=== PATIENT | female | born 1970 | race Caucasian/White ===

== ENCOUNTER 2016-10-31 18:10 | Emergency (ER) | payer MEDICAID ==
[2016-10-31 18:52] VITALS: BP 112/70
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
[2016-10-31 19:47] LABS: CHLORIDE,CL 108 mmol/L (98-110); SODIUM,NA 140 mmol/L (136-146)
== END 2016-10-31 20:18 | disposition home or self-care (01) ==
LOC: MW.ED 18:10
DX: R53.83 Other fatigue (principal); J45.909 Unspecified asthma, uncomplicated; F17.210 Nicotine dependence, cigarettes, uncomplicated; Z86.73 Personal history of transient ischemic attack (TIA), and cerebral infarction without residual deficits; Z98.890 Other specified postprocedural states; Z79.899 Other long term (current) drug therapy
CPT/HCPCS: 36415; 80053; 85025; 99282; 99283

== ENCOUNTER 2017-01-26 19:28 | Emergency (ER) | payer MEDICAID ==
[2017-01-26] MEDS ORDERED: Albuterol/Ipratropium 3.0-0.5 MG/3 ML Neb Soln NEB ONE (19:31)
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
[2017-01-26 20:01] LABS: CHLORIDE,CL 109 mmol/L (98-110); SODIUM,NA 141 mmol/L (136-146)
[2017-01-26 21:11] VITALS: BP 98/62
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
== END 2017-01-26 21:06 | disposition home or self-care (01) ==
LOC: MW.ED 19:28
DX: J45.21 Mild intermittent asthma with (acute) exacerbation (principal); F32.9 Major depressive disorder, single episode, unspecified; F17.210 Nicotine dependence, cigarettes, uncomplicated; Z86.73 Personal history of transient ischemic attack (TIA), and cerebral infarction without residual deficits; Z98.890 Other specified postprocedural states
CPT/HCPCS: 71020; 71020-26; 80053; 85025; 99284; 99285-25

== ENCOUNTER 2017-04-12 11:00 | Emergency (ER) | payer MEDICAID ==
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
[2017-04-12 12:29] VITALS: BP 99/63
== END 2017-04-12 12:24 | disposition home or self-care (01) ==
LOC: MW.ED 11:00
DX: B34.9 Viral infection, unspecified (principal); F17.210 Nicotine dependence, cigarettes, uncomplicated; Z79.899 Other long term (current) drug therapy
CPT/HCPCS: 87081; 87804; 87880; 99282; 99283

== ENCOUNTER 2017-07-16 19:17 | Observation (INO) | payer MEDICAID ==
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
[2017-07-16] MEDS ORDERED: methylPREDNISolone Sodium Succinate 125 MG/2 ML SDV IVPUSH ONE (19:46)
[2017-07-16 19:54] LABS: CHLORIDE,CL 108 mmol/L (98-110); SODIUM,NA 141 mmol/L (136-146)
[2017-07-16] MEDS ORDERED: Nitroglycerin 0.4 MG Tab.SL SL PRN (19:57)
[2017-07-16] MEDS ORDERED: Ketorolac 30 MG/ML SDV IVPUSH ONE (19:58)
[2017-07-16] MEDS ORDERED: Sodium Chloride 0.9% 500 ML IV SCH (20:15)
[2017-07-16] MEDS ORDERED: Albuterol/Ipratropium 3.0-0.5 MG/3 ML Neb Soln NEB PRN (21:11)
[2017-07-16] MEDS ORDERED: Acetaminophen 325 MG Tab PO PRN (21:13)
[2017-07-16] MEDS ORDERED: Morphine 2 MG/ML Syringe IVPUSH PRN (21:14)
[2017-07-16] MEDS ORDERED: Ondansetron 4 MG/2 ML SDV IVPUSH PRN (22:13)
[2017-07-16] MEDS: Benzonatate 100 MG Cap PO PRN (22:46)
[2017-07-17 07:19] VITALS: BP 98/59
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
[2017-07-17] MEDS: Benzonatate 100 MG Cap PO PRN (09:55)
--- NOTE | 2017-07-19 16:39 | CR ---
EXAM DATE: 07/16/17 PATIENT'S AGE: 46 Patient: ANNIE SHAH Facility: [place], [place] Site . Site : [id number] Study: XRay Chest [id number]/[id number] 7:43:06 PM Ordering Physician: Doctor Quevedo Final Report: INDICATION: Chest pain, shortness of breath. Cough for 4 days. TECHNIQUE: Chest radiograph 1 view COMPARISON: 01/26/2017. FINDINGS: Cardiovascular and mediastinum: The heart silhouette is normal in size and morphology. The mediastinum is normal in appearance. Lungs and pleural spaces: Both lungs are unremarkable in appearance. No sign of pleural effusion seen. No pneumothorax is identified. Bones and soft tissues: Lower cervical spine fusion hardware. IMPRESSION: 1. No acute cardiopulmonary disease is seen. No acute interval changes from . Dictated by Ezequiel Hall MD @ 07/16/2017 8:10:24 PM Dictated by: Ezequiel Hall MD @ 07/16/2017 20:10:29 (Electronic Signature) Report Signed by Proxy. [facility]ENTER[facility]ida
== END 2017-07-17 13:01 | disposition home or self-care (01) ==
LOC: MW.ED 19:17 → MW.ICU 20:19
PROVIDERS: ADMIT Internal Medicine; ATTEND Internal Medicine
DX: R07.9 Chest pain, unspecified (principal); R05 Cough; R06.02 Shortness of breath; J45.909 Unspecified asthma, uncomplicated; F32.9 Major depressive disorder, single episode, unspecified; Z79.899 Other long term (current) drug therapy; Z87.891 Personal history of nicotine dependence
CPT/HCPCS: 36415; 71045; 80053; 84484; 85025; 93005; 96374; 96375; 99285; A9270; G0378; J1885; J2930; J7040; 99284

== ENCOUNTER 2017-10-22 09:27 | Emergency (ER) | payer MEDICAID ==
[2017-10-22] MEDS ORDERED: Albuterol/Ipratropium 3.0-0.5 MG/3 ML Neb Soln NEB ONE ×2 (09:31→10:51)
[2017-10-22] MEDS ORDERED: Sodium Chloride 0.9% 2.5 ML Syringe FLUSH PRN (09:37)
[2017-10-22] MEDS ORDERED: methylPREDNISolone Sodium Succinate 125 MG/2 ML SDV IVPUSH ONE (09:37)
[2017-10-22] MEDS ORDERED: Sodium Chloride 0.9% 1,000 ML IV ONE (09:37)
[2017-10-22] MEDS ORDERED: Sodium Chloride 0.9% 10 ML Syringe FLUSH PRN (09:37)
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
--- NOTE | 2017-10-22 10:59 | CR ---
EXAMINATION: Soft tissue neck HISTORY: Pain COMPARISON: CT dated 07/18/2011 TECHNIQUE: AP and lateral views FINDINGS: Posterior fusion hardware is noted within the lower cervical spine. Prevertebral soft tissu es appear normal. Epiglottis is unremarkable. The subglottic trachea appears normal. The remaining os seous structures are otherwise normal. IMPRESSION: Grossly unremarkable soft tissue neck.
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
[2017-10-22 11:44] VITALS: BP 114/72
== END 2017-10-22 12:05 | disposition home or self-care (01) ==
LOC: MW.ED 09:27
DX: J45.901 Unspecified asthma with (acute) exacerbation (principal); Z79.899 Other long term (current) drug therapy; Z87.891 Personal history of nicotine dependence
CPT/HCPCS: 36415; 70360; 71101; 80053; 85025; 85610; 94640; 96361; 96374; 99285; J2930; J7040

== ENCOUNTER 2018-08-19 17:01 | Emergency (ER) | payer MEDICAID ==
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
[2018-08-19] MEDS ORDERED: Ketorolac 30 MG/ML SDV IVPUSH ONE (17:14)
[2018-08-19 19:02] VITALS: BP 113/70
--- NOTE | 2018-08-22 11:38 | CR ---
EXAM DATE: 08/19/18 PATIENT'S AGE: 48 Patient: ANNIE SHAH Facility: [facility] Site . Site : 1970 Study: XRay-Chest w/ ribs [id number]/22/2019 5:40:07 PM Ordering Physician: Junior Atkinson Final Report: INDICATION: Fall TECHNIQUE: Chest and left ribs 3 views. COMPARISON: 10/22/17 FINDINGS: Cardiovascular and mediastinum: Heart size and vasculature are normal in caliber and appearance. Mediastinum is within normal limits. Lungs and pleural spaces: Lungs are clear. No sign of infiltrate or mass. No sign of pleural effusion. No pneumothorax. Bones and soft tissues: Detailed oblique images of the left ribs demonstrate no fractures or bone lesions. IMPRESSION: Unremarkable chest and left ribs. Dictated by Ghanshyam Bailey MD @ 08/19/2018 6:27:43 PM Dictated by: Ghanshyam Bailey MD @ 08/19/2018 18:28:09 Signed by: Ghanshyam Bailey MD @08/19/2018 6:28:09 PM (Electronic Signature) Report Signed by Proxy. [facility]
== END 2018-08-19 19:00 | disposition home or self-care (01) ==
LOC: MW.ED 17:01
DX: S29.9XXA Unspecified injury of thorax, initial encounter (principal); J45.909 Unspecified asthma, uncomplicated; Z79.899 Other long term (current) drug therapy; Z86.73 Personal history of transient ischemic attack (TIA), and cerebral infarction without residual deficits; W01.198A Fall on same level from slipping, tripping and stumbling with subsequent striking against other object, initial encounter
CPT/HCPCS: 71101; 96374; 99284; J1885; 99282

== ENCOUNTER 2019-12-22 15:47 | Emergency (ER) | payer MEDICAID, OTHER ==
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
[2019-12-22] MEDS ORDERED: Dexamethasone 4 MG Tab PO ONE (15:56)
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
[2019-12-22 16:34] VITALS: BP 94/64; PULSE 93
[2019-12-22 16:42] LABS: BLOOD UREA NITROGEN,BUN 12 mg/dL (7.0-18.0); CARBON DIOXIDE,CO2 28.8 mmol/L (21.0-32.0); CHLORIDE,CL 105 mmol/L (98-107); GLUCOSE RANDOM 133 mg/dL (74-106); POTASSIUM,K 3.8 mmol/L (3.5-5.1); SODIUM,NA 141 mmol/L (136-145)
--- NOTE | 2019-12-22 17:35 | CR ---
Chest: Frontal view of the chest was obtained. Comparison: Previous chest x-ray of . Heart size and mediastinum are normal. Lungs are clear with no acute parenchymal change. Previous cervical spine surgery is noted. Impression: 1. Nothing acute is seen on frontal chest x-ray. Diagnostic code #2 This report was dictated in MDT
== END 2019-12-22 18:15 | disposition home or self-care (01) ==
LOC: MW.ED 15:47
DX: J45.901 Unspecified asthma with (acute) exacerbation (principal); Z20.828 Contact with and (suspected) exposure to other viral communicable diseases; F32.9 Major depressive disorder, single episode, unspecified; F17.210 Nicotine dependence, cigarettes, uncomplicated; Z79.899 Other long term (current) drug therapy; Z86.73 Personal history of transient ischemic attack (TIA), and cerebral infarction without residual deficits
CPT/HCPCS: 36415; 71045; 80053; 84484; 85025; 85379; 87635; 93005; 99285; J8540; 99283; U0002

== ENCOUNTER 2019-12-24 20:02 | Emergency (ER) | payer MEDICAID ==
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
[2019-12-24] MEDS ORDERED: Sodium Chloride 0.9% 2.5 ML Syringe FLUSH PRN (20:29)
[2019-12-24] MEDS ORDERED: Sodium Chloride 0.9% 10 ML Syringe FLUSH PRN (20:29)
[2019-12-24 21:40] LABS: BLOOD UREA NITROGEN,BUN 20 mg/dL (7.0-18.0); CARBON DIOXIDE,CO2 27.4 mmol/L (21.0-32.0); CHLORIDE,CL 103 mmol/L (98-107); GLUCOSE RANDOM 152 mg/dL (74-106); POTASSIUM,K 3.6 mmol/L (3.5-5.1); SODIUM,NA 139 mmol/L (136-145)
[2019-12-24] MEDS ORDERED: Iopamidol 755 Mg/ML 100 ML Bottle IVPUSH ONE (22:10)
[2019-12-24] MEDS ORDERED: cefTRIAXone 1 GM in Premix Bag 1 BAG IV ONE (22:20)
--- NOTE | 2019-12-24 23:10 | CT ---
INDICATION: Dyspnea. Chest pressure. Pericardial effusion. COMPARISON: Report of the previous chest radiograph from 08/19/2018 TECHNIQUE: CT examination of the chest was performed with the uneventful intravenous administration of 90 cc of Isovue 370 while 1 and 3 mm thick axial sections were obtained through the pulmonary arteries. Please note that all CT scans at this facility use dose modulation, iterative reconstruction, and/or weight-based dosing when appropriate to reduce radiation dose to as low as reasonably achievable. FINDINGS: : There is no sign of pulmonary embolism, with normal enhancement and branching of the pulmonary arteries. The lungs are clear with no sign of significant infiltrate or mass. There is no sign of mediastinal or hilar mass or adenopathy. The heart is normal in appearance for the patient`s age, as are the aorta and other ascending great vessels. There is no sign of supraclavicular or axillary mass or adenopathy. The visualized superior liver, spleen, pancreas, kidneys, and adrenals are normal in appearance. There are moderate T3 and mild T4 compression fractures. These are probably old, with no sign of any paraspinal soft tissue swelling. There is mild depression of the superior T7 endplate, an endplate fracture of indeterminate age. Incidental note is made of an unfused limbus ossification center of the anterior-superior T10 vertebral body. IMPRESSION: No sign of pulmonary embolism. No sign of any significant pulmonary infiltrate or mass. Moderate T3 and mild T4 compression fractures, probably old. Mild superior T7 endplate fracture, age-indeterminate. Please note that all CT scans at this facility use dose modulation, iterative reconstruction, and/or weight-based dosing when appropriate to reduce radiation dose to as low as reasonably achievable. Dictated by Rubin Beasley MD @ Dec 24 2019 11:03PM Signed by Dr. Rubin Beasley @ Dec 24 2019 11:08PM
[2019-12-25 00:34] VITALS: BP 103/74; PULSE 64
== END 2019-12-25 01:10 ==
LOC: MW.ED 20:02
DX: I31.3 Pericardial effusion (noninflammatory) (principal); N39.0 Urinary tract infection, site not specified; R94.31 Abnormal electrocardiogram [ECG] [EKG]; J45.909 Unspecified asthma, uncomplicated; F32.9 Major depressive disorder, single episode, unspecified; Z86.73 Personal history of transient ischemic attack (TIA), and cerebral infarction without residual deficits; Z98.890 Other specified postprocedural states; Z79.899 Other long term (current) drug therapy
CPT/HCPCS: 36415; 71275; 80053; 81001; 81025; 83880; 84484; 85025; 85610; 86140; 87040; 93005; 96365; 99285; J0696; Q9967; 99291

== ENCOUNTER 2020-03-26 00:25 | Emergency (ER) | payer MEDICAID ==
[2020-03-26 00:31] VITALS: BP 127/61; PULSE 84
[2020-03-26] MEDS ORDERED: ALPRAZolam 0.5 MG Tab PO ONE (00:35)
--- NOTE | 2020-03-26 00:41 | EDM.PDOC ---
ED HPI GENERAL MEDICAL PROBLEM - General Chief Complaint: General Stated Complaint: NOT FEELING WELL/anxiety Time Seen by Provider: 03/26/20 00:30 - History of Present Illness INITIAL COMMENTS - FREE TEXT/NARRATIVE: History of present illness: [] 90. She cannot sleep at night. For 3 days she has been up wearing. She sleeps during the day and then she can sleep at night. She prefers to sleep at night. She stopped her antidepressants 3 days ago. Patient realizes the temporal correlation. She says she is anxious but not suicidal not delusional not hallucinating. She does not have a therapist. Does not have any physical symptoms other than anxiety. Review of systems: As per history of present illness and below otherwise all systems reviewed and negative. Past medical history: As per history of present illness and as reviewed below otherwise noncontributory. Surgical history: As per history of present illness and as reviewed below otherwise noncontributory. Social history: No reported history of drug or alcohol abuse. Family history: As per history of present illness and as reviewed below otherwise noncontributory. Physical exam: Constitutional - well developed, well-nourished and in no acute distress HEENT - normocephalic, no evidence of trauma - external nose and mouth normal - no mass in neck and no JVD - mucosae moist EYES - full EOM, PERRL, no icterus - no evidence of inflammation, injection, or drainage Respiratory - no respiratory distress, equal bilateral expansion, lungs clear to auscultation and no abnormal lung sounds Cardiovascular - Regular Rhythm with S1 and S2 appreciated and no murmur, gallop or rub. GI - abdomen soft without distension or organomegaly - normal bowel sounds - no guard or rebound Musculoskeletal no gross deformity of long bones or joints - no tenderness, swelling or edema Neurologic - Alert and oriented times four - CN II-XII grossly intact - motor sensory and coordination symmetrically normal Psychiatric - appropriate mood and affect with normal thought content Hematologic - No petechiae or purpura - mucosa appropriate color and sclera not pale - normal nail bed color and refill Integument - no rash or evidence of trauma - normal turgor Diagnostics: [] Therapeutics: [] Impression: [] Plan: [] Definitive disposition and diagnosis as appropriate pending reevaluation and review of above. - Related Data Allergies Allergy/AdvReac Type Severity Reaction Status Date / Time No Known Allergies Allergy Verified 03/26/20 00:31 Home Meds: Home Meds ALPRAZolam [Xanax] 0.5 mg PO DAILY #2 tablet 03/26/20 [Rx] Social & Family History - Recreational Drug Use Recreational Drug Use: No ED ROS GENERAL - Review of Systems Review Of Systems: Comprehensive ROS is negative, except as noted in HPI. ED EXAM, GENERAL - Physical Exam Exam: See Below Free Text/Narrative:: My physical exam as in the HPI Course - Vital Signs Last Recorded V/S: Last Vital Signs Temp 97.4 F 03/26/20 00:27 Pulse 84 03/26/20 00:27 Resp 22 H 03/26/20 00:27 BP 127/61 03/26/20 00:27 Pulse Ox 99 03/26/20 00:27 - Orders/Labs/Meds Meds: Medications Discontinued Medications Generic Name Dose Route Start Last Admin Trade Name Freq PRN Reason Stop Dose Admin Alprazolam 0.5 mg 03/26/20 00:35 Xanax PO 03/26/20 00:36 NOW ONE Departure - Departure Time of Disposition: 00:38 Disposition: Home, Self-Care 01 Condition: Good Clinical Impression: Anxiety - Discharge Information Prescriptions: ALPRAZolam [Xanax] 0.5 mg PO DAILY #2 tablet Instructions: Managing Anxiety, Adult Additional Instructions: Restart your medicines [facility] Address: [address] [place] [id number] Hours: walk in 9 AM M-F The following information is given to patients seen in the emergency department who are being discharged to home. This information is to outline your options for follow-up care. We provide all patients seen in our emergency department with a follow-up referral. The need for follow-up, as well as the timing and circumstances, are variable depending upon the specifics of your emergency department visit. If you don't have a primary care physician on staff, we will provide you with a referral. We always advise you to contact your personal physician following an emergency department visit to inform them of the circumstance of the visit and for follow-up with them and/or the need for any referrals to a consulting specialist. The emergency department will also refer you to a specialist when appropriate. This referral assures that you have the opportunity for follow-up care with a specialist. All of these measure are taken in an effort to provide you with optimal care, which includes your follow-up. Under all circumstances we always encourage you to contact your private physician who remains a resource for coordinating your care. When calling for follow-up care, please make the office aware that this follow-up is from your recent emergency room visit. If for any reason you are refused follow-up, please contact the [facility] Emergency Department at and asked to speak to the emergency department charge nurse. Sepsis Event Note (ED) - Evaluation Sepsis Screening Result: No Definite Risk - Focused Exam Vital Signs: Vital Signs Temp Pulse Resp BP Pulse Ox 03/26/20 00:27 97.4 F 84 22 H 127/61 99
== END 2020-03-26 00:54 | disposition home or self-care (01) ==
LOC: EDBD 00:25 → MW.ED 00:25 → MERGE 00:25 → MW.ED 00:54
DX: F41.9 Anxiety disorder, unspecified (principal)
CPT/HCPCS: 99283; A9270

== ENCOUNTER 2020-05-02 18:28 | Emergency (ER) | payer MEDICAID ==
[2020-05-02] MEDS ORDERED: Sodium Chloride 0.9% 2.5 ML Syringe FLUSH PRN (18:31)
[2020-05-02] MEDS ORDERED: Sodium Chloride 0.9% 10 ML Syringe FLUSH PRN (18:31)
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
[2020-05-02] MEDS ORDERED: Morphine 4 MG/ML Syringe IVPUSH ONE (18:56)
[2020-05-02 19:11] LABS: BLOOD UREA NITROGEN,BUN 8 mg/dL (7.0-18.0); CARBON DIOXIDE,CO2 24.5 mmol/L (21.0-32.0); CHLORIDE,CL 107 mmol/L (98-107); POTASSIUM,K 3.7 mmol/L (3.5-5.1); SODIUM,NA 140 mmol/L (136-145)
--- NOTE | 2020-05-02 19:21 | CR ---
INDICATION: Trauma. Fall. Left-sided chest/rib pain. TECHNIQUE: PA chest and 2 detailed views of the left-sided ribs. COMPARISON: August 19, 2018. FINDINGS: Both lungs are expanded and clear without pneumothoraces or infiltrates. Overall heart size and pulmonary vascularity are normal. There postsurgical changes from fusion within the cervical spine. There is an old upper right lateral rib fracture likely the 2nd or 3rd rib. This was seen previously in retrospect. There are no acute displaced left-sided rib fractures. Incidental note is made of 2 tiny radiodensities within the left upper quadrant likely within the colon probably ingested. IMPRESSION: No acute left-sided rib fracture. No acute cardiopulmonary process identified. Postsurgical change of the cervical spine. Old upper right lateral rib fracture. Dictated by Mazin Brambila MD @ May 02 2020 7:20PM Signed by Dr. Mazin Brambila @ May 02 2020 7:20PM
[2020-05-02 19:27] LABS: GLUCOSE RANDOM 63 mg/dL (74-106)
[2020-05-02] MEDS ORDERED: Nitrofurantoin Monohydrate/Macrocrystalline 100 MG Cap PO ONE (19:53)
--- NOTE | 2020-05-02 21:01 | PCM.SN.2 ---
- Free Text/Narrative Note: EKG: As interpreted by ER physician: Stephanie: Nonspecific ST-T wave abnormalities Normal axis No evidence of ST elevation SC Normal sinus rhythm heart rate of 80
[2020-05-03 00:36] VITALS: BP 114/73; PULSE 91
== END 2020-05-02 20:36 | disposition home or self-care (01) ==
LOC: MW.ED 18:28
DX: R07.81 Pleurodynia (principal); N39.0 Urinary tract infection, site not specified; F41.9 Anxiety disorder, unspecified; F32.9 Major depressive disorder, single episode, unspecified; Z79.899 Other long term (current) drug therapy; Z86.73 Personal history of transient ischemic attack (TIA), and cerebral infarction without residual deficits
CPT/HCPCS: 36415; 71101; 80053; 81001; 82962; 84484; 85025; 87086; 93005; 96374; 99285; A9270; J2270

== ENCOUNTER 2021-03-04 09:02 | Emergency (ER) | payer MEDICAID ==
[2021-03-04] MEDS ORDERED: Ondansetron 4 MG/2 ML SDV IVPUSH ONE (09:18)
[2021-03-04] MEDS ORDERED: Morphine 4 MG/ML Syringe IVPUSH ONE (09:18)
[2021-03-04] MEDS ORDERED: Sodium Chloride 0.9% 1,000 ML IV ONE (09:18)
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
[2021-03-04 10:18] LABS: CARBON DIOXIDE,CO2 27.6 mmol/L (21.0-32.0); POTASSIUM,K 4.5 mmol/L (3.5-5.1)
[2021-03-04] MEDS ORDERED: Iopamidol 755 MG/ML 500 ML Multipack Bottle IVPUSH STA (10:51)
--- NOTE | 2021-03-04 11:31 | CT ---
INDICATION: Fell; right upper quadrant abdominal pain; right rib pain. TECHNIQUE: CT chest with intravenous contrast; coronal and sagittal reformats. FINDINGS: No evidence of mediastinal hematoma. Thoracic aorta is unremarkable. Normal size cardiac silhouette without any pericardial effusion. No evidence of pneumothorax or pleural effusion. Undisplaced fracture right 3rd anterior rib in the midaxillary line. Limited CT through the upper abdomen is unremarkable. IMPRESSION: 1. Undisplaced fracture right 3rd anterior rib in the mid-axillary line. 2. No pneumothorax or pleural effusion. 3. No evidence of mediastinal hematoma. Please note that all CT scans at this facility use dose modulation, iterative reconstruction, and/or weight-based dosing when appropriate to reduce radiation dose to as low as reasonably achievable. Dictated by Katty Hamlin MD @ 03/04/2021 11:29:27 AM (Electronically Signed)
--- NOTE | 2021-03-04 11:42 | CT ---
INDICATION: Patient fell ;Right-sided rib pain; right upper quadrant abdominal pain. TECHNIQUE: CT abdomen and pelvis with intravenous contrast; coronal and sagittal reformats. FINDINGS: No abnormal intra pulmonary nodular densities through the lung bases. No evidence of pleural effusion . Normal size cardiac silhouette without any pericardial effusion. No focal hepatic or splenic pathology. No pancreatic pathology. Gallbladder is unremarkable. No adrenal pathology. No kidney stones or obstructive uropathy. A bilobed cortical cyst upper pole right kidney. No retroperitoneal lymphadenopathy . No evidence of abdominal or pelvic ascites. Copious amounts of retained stool identified in the colon. Normal appendix. CT study of the pelvis is unremarkable. A fracture involving 1st lumbar vertebra vertically oriented with posterior fragment displaced posteriorly compressing the thecal sac. No hematoma identified surrounding the 1st lumbar vertebra . This finding need to be correlated clinically to assess the age of this fracture. Impression: A vertically oriented compression fracture of L1 with posterior displacement of the posterior fragment by 6.1 mm onto the thecal sac; cannot be certain whether this is acute fracture or chronic fracture; clinical correlation suggested; MR of the lumbar sacral spine may be needed. 1. Bilobed cortical cyst upper pole right kidney. 2. Normal appendix. 3. Copious amounts of retained stool identified in the colon. 4. Negative CT abdomen and pelvis with intravenous contrast otherwise. 5. Findings were notified to Dr. Jerome at 11:37 a.m. Please note that all CT scans at this facility use dose modulation, iterative reconstruction, and/or weight-based dosing when appropriate to reduce radiation dose to as low as reasonably achievable. Dictated by Katty Hamlin MD @ 03/04/2021 11:39:55 AM (Electronically Signed)
[2021-03-04 11:49] VITALS: BP 106/78; PULSE 81
== END 2021-03-04 11:48 | disposition home or self-care (01) ==
LOC: MW.ED 09:02
DX: S22.31XA Fracture of one rib, right side, initial encounter for closed fracture (principal); Z86.73 Personal history of transient ischemic attack (TIA), and cerebral infarction without residual deficits; Z72.0 Tobacco use; W18.39XA Other fall on same level, initial encounter
CPT/HCPCS: 36415; 71260; 74177; 80053; 85025; 96374; 96375; 99285; J2270; J2405; J7030; Q9967

== ENCOUNTER 2021-03-18 09:25 | Emergency (ER) | payer MEDICAID ==
[2021-03-18] MEDS ORDERED: Acetaminophen/oxyCODONE 325-5 MG Tab PO ONE (09:37)
[2021-03-18] MEDS ORDERED: Cyclobenzaprine 10 MG Tab PO ONE (09:38)
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
--- NOTE | 2021-03-18 10:26 | CR ---
HISTORY: Rib fracture. Pain. COMPARISON: CT of the chest, 03/04/2021. TECHNIQUE: Chest one-view. FINDINGS: The nondisplaced rib fracture described on the recent CT scan is subtle on plain radiograph. There is no pneumothorax. There is no deep sulcus sign. Heart size and pulmonary vasculature are within normal limits. Lateral costophrenic sulci are sharp. Partially visualized fusion changes in the cervical spine. IMPRESSION: 1. Nondisplaced right rib fracture described on the CT scan is subtle, with mild cortical thickening/sclerosis. 2. There is no acute airspace disease or pneumothorax. Dictated by Matthew Lazar MD @ 03/18/2021 10:26:01 AM (Electronically Signed)
[2021-03-18 12:17] VITALS: BP 108/76; PULSE 103
== END 2021-03-18 11:05 | disposition home or self-care (01) ==
LOC: MW.ED 09:25
DX: S22.31XA Fracture of one rib, right side, initial encounter for closed fracture (principal); Z86.73 Personal history of transient ischemic attack (TIA), and cerebral infarction without residual deficits; X58.XXXA Exposure to other specified factors, initial encounter
CPT/HCPCS: 71045; 99283; A9270

== ENCOUNTER 2021-04-08 08:53 | Emergency (ER) | payer MEDICAID ==
[2021-04-08] MEDS ORDERED: Ibuprofen 600 MG Tab PO ONE (09:19)
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
--- NOTE | 2021-04-08 10:07 | CR ---
INDICATION: Chest pain COMPARISON: March 18, 2021 TECHNIQUE: Single view AP portable upright chest radiograph FINDINGS: TUBES AND LINES: None. HEART AND MEDIASTINUM: The heart size is normal. The mediastinal contour appears normal for patient age. LUNGS AND PLEURAL SPACES: The lungs appear normal.The pleural spaces are unremarkable. OSSEOUS STRUCTURES: Age-appropriate appearance. No acute focal finding.Postsurgical changes involving the cervical spine as visualized IMPRESSION: No evidence of active pulmonary disease. Dictated by oM Garcia MD @ 04/08/2021 10:05:33 AM (Electronically Signed)
[2021-04-08 10:12] LABS: BLOOD UREA NITROGEN,BUN 11 mg/dL (7.0-18.0); CARBON DIOXIDE,CO2 31.3 mmol/L (21.0-32.0); CHLORIDE,CL 104 mmol/L (98-107); GLUCOSE RANDOM 98 mg/dL (74-106); POTASSIUM,K 4.2 mmol/L (3.5-5.1); SODIUM,NA 138 mmol/L (136-145)
[2021-04-08 11:13] VITALS: BP 114/34; PULSE 97
== END 2021-04-08 11:05 | disposition home or self-care (01) ==
LOC: MW.ED 08:53
DX: R07.89 Other chest pain (principal); J45.909 Unspecified asthma, uncomplicated; Z79.899 Other long term (current) drug therapy
CPT/HCPCS: 36415; 71045; 80053; 80307; 84484; 85025; 93005; 99285; A9270

== ENCOUNTER 2021-06-15 19:18 | Emergency (ER) | payer MEDICAID ==
[2021-06-15] MEDS ORDERED: Sodium Chloride 0.9% 500 ML IV SCH (20:15)
[2021-06-15] MEDS ORDERED: Acetaminophen 325 MG Tab PO ONE (21:02)
[2021-06-15 21:31] LABS: BLOOD UREA NITROGEN,BUN 9 mg/dL (7.0-18.0); CARBON DIOXIDE,CO2 29.8 mmol/L (21.0-32.0); CHLORIDE,CL 105 mmol/L (98-107); GLUCOSE RANDOM 109 mg/dL (74-106); POTASSIUM,K 3.7 mmol/L (3.5-5.1); SODIUM,NA 141 mmol/L (136-145)
[2021-06-15 22:16] VITALS: BP 110/78; PULSE 102
== END 2021-06-15 22:23 ==
LOC: MW.ED 19:18
DX: S30.0XXA Contusion of lower back and pelvis, initial encounter (principal); J45.909 Unspecified asthma, uncomplicated; R00.0 Tachycardia, unspecified; Z72.0 Tobacco use; Z79.899 Other long term (current) drug therapy; W19.XXXA Unspecified fall, initial encounter
CPT/HCPCS: 36415; 72170; 80053; 81001; 84484; 85025; 87086; 93005; 99284; A9270; J7040

== ENCOUNTER 2021-10-04 14:45 | Emergency (ER) | payer MEDICAID ==
[2021-10-04] MEDS ORDERED: Ondansetron 4 MG/2 ML SDV IVPUSH STA (15:13)
[2021-10-04] MEDS ORDERED: Morphine 4 MG/ML VIAL IVPUSH STA (15:13)
[2021-10-04] MEDS ORDERED: Sodium Chloride 0.9% 10 ML Syringe FLUSH PRN (15:13)
[2021-10-04] MEDS ORDERED: Sodium Chloride 0.9% 2.5 ML Syringe FLUSH PRN (15:13)
[2021-10-04 15:38] LABS: BLOOD UREA NITROGEN,BUN 10 mg/dL (7.0-18.0); CARBON DIOXIDE,CO2 25.7 mmol/L (21.0-32.0); CHLORIDE,CL 106 mmol/L (98-107); GLUCOSE RANDOM 135 mg/dL (74-106); LIPASE 49 U/L (73-393); POTASSIUM,K 3.9 mmol/L (3.5-5.1); SODIUM,NA 141 mmol/L (136-145)
[2021-10-04 17:10] VITALS: BP 107/76; PULSE 101
[2021-10-04] MEDS ORDERED: Iopamidol 755 MG/ML 500 ML Multipack Bottle IVPUSH ONE (17:57)
== END 2021-10-04 17:08 | disposition home or self-care (01) ==
LOC: MW.ED 14:45
DX: L03.90 Cellulitis, unspecified (principal); Z72.0 Tobacco use
CPT/HCPCS: 36415; 74177; 80053; 83690; 85025; 96374; 96375; 99284; J2270; J2405; J3490; Q9967

== ENCOUNTER 2021-10-15 19:00 | Emergency (ER) | payer MEDICAID ==
[2021-10-15] MEDS ORDERED: Acetaminophen/oxyCODONE 325-5 MG Tab PO ONE (19:59)
[2021-10-15 20:45] LABS: BLOOD UREA NITROGEN,BUN 7 mg/dL (7.0-18.0); CARBON DIOXIDE,CO2 26.9 mmol/L (21.0-32.0); CHLORIDE,CL 105 mmol/L (98-107); GLUCOSE RANDOM 84 mg/dL (74-106); POTASSIUM,K 3.8 mmol/L (3.5-5.1); SODIUM,NA 141 mmol/L (136-145)
[2021-10-15 22:53] VITALS: BP 106/80; PULSE 97
== END 2021-10-15 22:52 | disposition home or self-care (01) ==
LOC: MW.ED 19:00
DX: R10.31 Right lower quadrant pain (principal); Z86.73 Personal history of transient ischemic attack (TIA), and cerebral infarction without residual deficits
CPT/HCPCS: 36415; 72170; 80053; 85025; 85379; 93971; 99284; A9270; 99283

== ENCOUNTER 2021-10-28 04:48 | Emergency (ER) | payer MEDICAID ==
[2021-10-28 04:58] VITALS: BP 120/70; PULSE 106
[2021-10-28] MEDS ORDERED: fentaNYL 50 MCG/ML SDV IM ONE (05:00)
[2021-10-28] MEDS ORDERED: Ketorolac 30 MG/ML SDV IM ONE (05:00)
[2021-10-28] MEDS ORDERED: Ondansetron 4 MG Tab.DIS PO ONE (05:00)
[2021-10-28 05:57] LABS: CARBON DIOXIDE,CO2 26.8 mmol/L (21.0-32.0)
== END 2021-10-28 06:50 | disposition home or self-care (01) ==
LOC: MW.ED 04:48
DX: M25.551 Pain in right hip (principal); Z86.73 Personal history of transient ischemic attack (TIA), and cerebral infarction without residual deficits; Z79.899 Other long term (current) drug therapy
CPT/HCPCS: 36415; 72192; 80053; 85025; 96372; 99284; A9270; J1885; J3010

== ENCOUNTER 2021-10-31 03:47 | Emergency (ER) | payer MEDICAID ==
[2021-10-31] MEDS ORDERED: Sodium Chloride 0.9% 2.5 ML Syringe FLUSH PRN (03:51)
[2021-10-31] MEDS ORDERED: Sodium Chloride 0.9% 1,000 ML IV ONE (03:51)
[2021-10-31] MEDS ORDERED: Sodium Chloride 0.9% 10 ML Syringe FLUSH PRN (03:51)
[2021-10-31] MEDS ORDERED: Clindamycin Phosphate in D5W 600 MG in Premix Bag 1 BAG IV ONE ×2 (04:41)
[2021-10-31] MEDS ORDERED: ceFAZolin 2 GM in Premix Bag 1 BAG IV ONE (04:42)
[2021-10-31 04:44] LABS: CARBON DIOXIDE,CO2 29.6 mmol/L (21.0-32.0); POTASSIUM,K 3.6 mmol/L (3.5-5.1)
[2021-10-31] MEDS ORDERED: fentaNYL 50 MCG/ML SDV IVPUSH ONE (04:54)
[2021-10-31 06:48] VITALS: BP 102/75; PULSE 89
== END 2021-10-31 07:25 | disposition home or self-care (01) ==
LOC: MW.ED 03:47
DX: L03.90 Cellulitis, unspecified (principal); L30.9 Dermatitis, unspecified; Z86.73 Personal history of transient ischemic attack (TIA), and cerebral infarction without residual deficits
CPT/HCPCS: 36415; 80053; 83605; 85025; 87040; 96365; 96368; 96375; 99283; J0690; J3010; J3490; J7030

== ENCOUNTER 2022-01-12 09:00 | Emergency (ER) | payer MEDICAID ==
[2022-01-12] MEDS ORDERED: Ketorolac 30 MG/ML SDV IVPUSH ONE (10:12)
[2022-01-12] MEDS ORDERED: Orphenadrine 60 MG/2 ML Inj IM ONE (10:19)
[2022-01-12 11:46] VITALS: BP 100/48; PULSE 84
== END 2022-01-12 11:46 | disposition home or self-care (01) ==
LOC: MW.ED 09:00
DX: S29.9XXA Unspecified injury of thorax, initial encounter (principal); Z79.899 Other long term (current) drug therapy; Z86.73 Personal history of transient ischemic attack (TIA), and cerebral infarction without residual deficits; Z72.0 Tobacco use; X58.XXXA Exposure to other specified factors, initial encounter
CPT/HCPCS: 71045; 93005; 96372; 96374; 99284; J1885; J2360; 93010; 99283

== ENCOUNTER 2022-10-20 12:54 | Emergency (ER) | payer MEDICAID ==
[2022-10-20 14:35] VITALS: BP 114/78; PULSE 96
== END 2022-10-20 14:44 | disposition home or self-care (01) ==
LOC: MW.ED 12:54
DX: Z13.9 Encounter for screening, unspecified (principal); R49.0 Dysphonia; J45.909 Unspecified asthma, uncomplicated; Z79.899 Other long term (current) drug therapy
CPT/HCPCS: 93005; 99283

== ENCOUNTER 2022-12-12 18:21 | Emergency (ER) | payer MEDICAID ==
[2022-12-12 19:25] LABS: BASOPHILS PERCENT AUTO 0.3 % (0.0-1.5); EOSINOPHILS ABSOLUTE AUTO 0.5 K/uL (0.0-0.7); EOSINOPHILS PERCENT AUTO 4.6 % (0.0-7.0); HEMATOCRIT 41.2 % (36.0-46.0); HEMOGLOBIN 13.4 g/dL (12.0-16.0); LYMPHOCYTES ABSOLUTE AUTO 1.5 K/uL (0.6-2.4); MEAN CORPUSCULAR HEMOGLOBIN 30.5 pg (27.0-32.0); MEAN CORPUSCULAR HGB CONC 32.5 g/dL (31.0-37.0); MEAN CORPUSCULAR VOLUME 93.6 fL (80.0-98.0); MONOCYTES ABSOLUTE AUTO 0.9 K/uL (0.0-0.8); MONOCYTES PERCENT AUTO 7.3 % (0.0-15.0); NEUTROPHILS ABSOLUTE AUTO 8.7 K/uL (1.4-5.7); NEUTROPHILS PERCENT AUTO 74.8 % (48.0-80.0); NRBC ABSOLUTE 0 K/uL; PLATELET COUNT,PLT 274 K/uL (150-400); WHITE BLOOD CELL COUNT,WBC 11.58 K/uL (4.0-11.0)
[2022-12-12 19:41] LABS: AMPHETAMINES SCREEN, URINE NEGATIVE (CUTOFF=500); BARBITURATE SCREEN,URINE NEGATIVE (CUTOFF=200); BENZODIAZEPINES SCREEN,URINE NEGATIVE (CUTOFF=150); BUPRENORPHINE SCREEN,URINE NEGATIVE (CUTOFF=10); METHADONE SCREEN, URINE NEGATIVE (CUTOFF=200); METHAMPHETAMINES SCREEN, URINE NEGATIVE (CUTOFF=500); OXYCODONE SCREEN,URINE NEGATIVE (CUT0FF=100); PCP SCREEN,URINE NEGATIVE (CUTOFF=25); PROPOXYPHENE SCREEN,URINE NEGATIVE (CUTOFF=300); THC SCREEN,URINE 20 NG/ML NEGATIVE (CUTOFF=50)
[2022-12-12 19:48] LABS: ALBUMIN 3.6 g/dL (3.4-5.0); BILIRUBIN TOTAL 0.3 mg/dL (0.2-1.0); CALCIUM 9.1 mg/dL (8.5-10.1); CARBON DIOXIDE,CO2 29.2 mmol/L (21.0-32.0); CREATININE 1.1 mg/dL (0.6-1.0); EST CRCL DRUG DOSING (CG) 47.32 mL/min; POTASSIUM,K 4.4 mmol/L (3.5-5.1); PROTEIN TOTAL,TP 7.2 g/dL (6.4-8.2)
[2022-12-12 19:57] LABS: APPEARANCE,URINE CLEAR; BILIRUBIN,URINE NEGATIVE (NEGATIVE); GLUCOSE,URINE NEGATIVE (NEGATIVE); KETONES,URINE NEGATIVE (NEGATIVE); LEUKOCYTE ESTERASE,URINE TRACE (NEGATIVE); NITRITE,URINE NEGATIVE (NEGATIVE); OCCULT BLOOD,URINE NEGATIVE (NEGATIVE); PH,URINE 5.5 (5.0-8.0); PROTEIN,URINE NEGATIVE (NEGATIVE); UROBILINOGEN,URINE 0.2 EU/dL (<2.0)
[2022-12-12 20:08] LABS: COLOR,URINE DARK YELLOW
[2022-12-12 20:09] LABS: BACTERIA,URINE FEW (NEGATIVE); EPITHELIAL CELLS,URINE FEW (NONE-FEW); RBC,URINE 0-1 (0-2/HPF)
[2022-12-12 20:53] VITALS: BP 111/86; PULSE 100
== END 2022-12-12 20:52 | disposition home or self-care (01) ==
LOC: MW.ED 18:21
DX: Z04.3 Encounter for examination and observation following other accident (principal); F17.210 Nicotine dependence, cigarettes, uncomplicated
CPT/HCPCS: 36415; 70450; 70450-26; 80053; 80305-QW; 81001; 82550; 85025; 87086; 99282; 99285

== ENCOUNTER 2023-02-04 14:10 | Emergency (ER) | payer MEDICAID ==
[2023-02-04 14:54] VITALS: BP 124/81; PULSE 116
== END 2023-02-04 17:47 | disposition home or self-care (01) ==
LOC: MW.ED 14:10
DX: S01.21XA Laceration without foreign body of nose, initial encounter (principal); J45.909 Unspecified asthma, uncomplicated; Z79.899 Other long term (current) drug therapy; W18.30XA Fall on same level, unspecified, initial encounter; Y92.009 Unspecified place in unspecified non-institutional (private) residence as the place of occurrence of the external cause
CPT/HCPCS: 70450; 70450-26; 99281; 99285

== ENCOUNTER 2024-01-07 09:56 | Emergency (ER) | payer MEDICAID ==
[2024-01-07] MEDS: Lidocaine 4% 1 each Patch TOP STA (11:23)
[2024-01-07 11:26] VITALS: BP 98/58; PULSE 80
== END 2024-01-07 11:25 | disposition home or self-care (01) ==
LOC: MW.ED 09:56
DX: S20.212A Contusion of left front wall of thorax, initial encounter (principal); Z75.8 Other problems related to medical facilities and other health care; W19.XXXA Unspecified fall, initial encounter
CPT/HCPCS: 71101; 99283; A9270

== ENCOUNTER 2024-06-23 12:00 | Emergency (ER) | payer MEDICAID ==
[2024-06-23 13:23] VITALS: BP 111/64; PULSE 90
== END 2024-06-23 13:22 | disposition home or self-care (01) ==
LOC: MW.ED 12:00
DX: J06.9 Acute upper respiratory infection, unspecified (principal); B97.89 Other viral agents as the cause of diseases classified elsewhere; Z79.899 Other long term (current) drug therapy; Z75.8 Other problems related to medical facilities and other health care
CPT/HCPCS: 71046; 71046-26; 87428-QW; 99284

== ENCOUNTER 2024-10-02 07:00 | Day surgery (SDC) | payer MEDICAID ==
[2024-10-02] MEDS: Lactated Ringers 1,000 ML IV SCH (07:50)
[2024-10-02] MEDS ORDERED: propofoL 500 MG/50 ML 50 ML ONE (08:39)
[2024-10-02] MEDS ORDERED: Lidocaine 2% 5 ML SDV ONE (08:41)
[2024-10-02] MEDS ORDERED: Lactated Ringers 1,000 ML IV SCH (10:15)
[2024-10-02 11:13] VITALS: BP 127/68; PULSE 65
== END 2024-10-02 10:58 | disposition home or self-care (01) ==
LOC: MW.SDS 07:00
PROVIDERS: ATTEND Surgery
DX: Z12.11 Encounter for screening for malignant neoplasm of colon (principal); D12.4 Benign neoplasm of descending colon; K57.30 Diverticulosis of large intestine without perforation or abscess without bleeding; F17.210 Nicotine dependence, cigarettes, uncomplicated; Z79.899 Other long term (current) drug therapy
CPT/HCPCS: 45380; J2003; J2704; J7120; 00811

== ENCOUNTER 2025-02-26 17:47 | Emergency (ER) | payer MEDICAID ==
[2025-02-26 19:13] VITALS: BP 105/69; PULSE 83
== END 2025-02-26 19:12 | disposition home or self-care (01) ==
LOC: MW.ED 17:47
DX: S09.90XA Unspecified injury of head, initial encounter (principal); G44.319 Acute post-traumatic headache, not intractable; J44.89 Other specified chronic obstructive pulmonary disease; E11.9 Type 2 diabetes mellitus without complications; Z86.73 Personal history of transient ischemic attack (TIA), and cerebral infarction without residual deficits; Z79.899 Other long term (current) drug therapy; Y04.2XXA Assault by strike against or bumped into by another person, initial encounter; Y93.89 Activity, other specified
CPT/HCPCS: 70450; 72125; 99284; A9270